=== PATIENT | female | born 1955 | race Native Hawaiian/Other Pacific Islander ===

== ENCOUNTER 2018-03-25 13:56 | Emergency (ER) | payer BC ==
[2018-03-25] MEDS ORDERED: DILAUDID 2 MG INJECTION (14:27)
[2018-03-25] MEDS ORDERED: TORAdol 30 mg Injection (14:27)
[2018-03-25] MEDS ORDERED: Phenergan 25 MG INJ (14:27)
[2018-03-25] MEDS ORDERED: Flomax 0.4 MG (14:27)
[2018-03-25] MEDS ORDERED: Sodium Chloride 0.9% 1000 ML 1,000 ML (14:27)
[2018-03-25] MEDS: Sodium Chloride 0.9% 1000 ML 1,000 ML IV (14:29)
[2018-03-25] MEDS: Flomax 0.4 MG PO (14:30)
[2018-03-25] MEDS: Phenergan 25 MG INJ IV (14:34)
[2018-03-25 14:35] LABS: Lactic Acid 1.2 (0.4-2.0)
[2018-03-25] MEDS: TORAdol 30 mg Injection IV (14:36)
[2018-03-25] MEDS: Hydromorphone 1 mg/ml Ampule IV (14:38)
[2018-03-25 14:41] LABS: BASOPHIL % 0.2 % (0.0-0.4); Basophil (Absolute #) 0.03 (0-0.4); Eosinophil % 0.4 % (0.00-5.0); Eosinophil (Absolute #) 0.05 (0-0.5); Granulocyte Absolute (ANC) 8.24 (1.4-6.9); Granulocytes % 67.2 % (36.0-66.0); Hematocrit 36.5 % (35-47); Hemoglobin 12.3 gm/dl (12.0-16.0); Lymphocyte (Absolute #) 3.17 (1.0-4.6); Lymphocytes % 25.8 % (24.0-44.0); Mean Cell Volume 86.9 fl (78-100); Mean Corpuscular Hemoglobin 29.3 pg (26-32); Mean Corpuscular Hgb Concent. 33.7 g/dl (32-36); Mean Platelet Volume 10.5 fl (6-9.5); Monocyte (Absolute #) 0.79 (0.0-1.3); Monocytes % 6.4 % (0.0-12.0); Platelet Count 253 K/mm3 (150-450); Red Cell Distribution Width 12.7 % (11.5-14.0); White Blood Count 12.3 K/mm3 (4.0-10.5)
[2018-03-25 14:43] LABS: ADD MANUAL DIFF? NO (NO)
[2018-03-25 15:03] LABS: ALBUMIN 4.4 g/dL (3.5-5.0); ALKALINE PHOSPHATASE 58 U/L (38-126); ANION GAP 15.6 MEQ/L (5-15); BLOOD UREA NITROGEN 17 mg/dL (7-17); CHLORIDE 104 mmol/L (98-107); Calcium 9.7 mg/dL (8.4-10.2); Carbon Dioxide 25 mmol/L (22-30); Creatinine 1 0.79 mg/dL (0.52-1.04); EST GLOMERULAR FILTRATION RATE > 60.0 ML/MIN; Glucose 115 mg/dL (74-106); LIPASE 98 U/L (23-300); SGOT/AST 19 U/L (14-36); SGPT/ALT 13 U/L (0-35); SODIUM 140 mmol/L (137-145)
[2018-03-25 18:02] LABS: Appearance HAZY (CLEAR); Bilirubin NEGATIVE (NEGATIVE); Collection Type VOID; Glucose NEGATIVE (NEGATIVE); Ketones NEGATIVE (NEGATIVE); Leukocyte Esterase 1+ (NEGATIVE); Nitrite NEGATIVE (NEGATIVE); Protein,Urine Dip 30 (Negative); Specific Gravity 1.025 (1.005-1.025); Urobilinogen NORMAL mg/dL (0-1)
[2018-03-25 18:05] LABS: Blood 250 Ery/ul (0-5); COMPLETE URINE MICROSCOPIC? YES; WBC 0-2 /HPF (0-5)
[2018-03-25 18:06] LABS: Epithelial Cells RARE /HPF (FEW)
[2018-03-25 22:21] LABS: ADD URINE CULTURE? YES (NO)
== END 2018-03-25 17:35 | disposition short-term general hospital (02) ==
LOC: ED 13:56
CPT/HCPCS: 36000; 36415; 74176; 80053; 81000; 83605; 83690; 85025; 87086; 96360; 96374; 96375; J1170; J1885; J2550